=== PATIENT | female | born 1950 | race Caucasian/White ===

== ENCOUNTER 2017-11-28 10:30 | Outpatient (CLI) | payer MEDICARE, OTHER, SELFPAY | END 2017-11-28 10:31 | PROVIDERS: Visit Provider Orthopaedic Surgery | DX: M77.12 Lateral epicondylitis, left elbow (principal); M75.82 Other shoulder lesions, left shoulder | CPT/HCPCS: 99214 ==

== ENCOUNTER 2018-03-13 13:58 | Outpatient (CLI) | payer MEDICARE, OTHER, SELFPAY ==
--- NOTE | 2018-03-13 13:56 | DI.RAD_ITS ---
SYMPTOM/DIAGNOSIS: ? BILATERAL HIP PAIN AP PELVIS: Minimal acetabular spurring is seen of the hips bilaterally. The hip joints are otherwise well maintained. The sacroiliac joints and symphysis pubis appear intact. The bones are normally mineralized. The soft tissues are unremarkable. IMPRESSION: Minimal degenerative changes of the hips bilaterally.
== END 2018-03-13 14:18 ==
PROVIDERS: Visit Provider Student in an Organized Health Care Education/Training Program
DX: M25.551 Pain in right hip (principal); M25.552 Pain in left hip; M16.0 Bilateral primary osteoarthritis of hip; M77.12 Lateral epicondylitis, left elbow; M75.82 Other shoulder lesions, left shoulder; M70.52 Other bursitis of knee, left knee; M70.51 Other bursitis of knee, right knee; M54.5 Low back pain
CPT/HCPCS: 20610; 99204; 99214; 72170; J1040; L3908

== ENCOUNTER 2023-05-03 15:34 | Outpatient (CLI) | payer MEDICARE, OTHER, SELFPAY ==
--- NOTE | 2023-05-03 09:30 | DI.RAD_ITS ---
Exam(s) XR ELBOW LT COMPLETE EXAM: XR ELBOW LT COMPLETE CLINICAL HISTORY: left elbow pain. TECHNIQUE: 2D digital imaging was performed. COMPARISON: No exams were available for comparison FINDINGS: Four views. No evidence of fracture nor joint effusion. There is no swelling of the olecranon bursa. Radial hea d and neck appear unremarkable. No obvious degenerative changes nor loose intra-articular bodies in the elbow joint. Epicondyles appear unremarkable. IMPRESSION: No significant osseous findings in the elbow. DATA REPOSITORY: RADIATION DOSE DELIVERED:
== END 2023-05-03 15:35 | disposition home or self-care (01) ==
LOC: DIORS 15:34
PROVIDERS: Visit Provider Student in an Organized Health Care Education/Training Program
DX: M77.02 Medial epicondylitis, left elbow; M77.12 Lateral epicondylitis, left elbow
CPT/HCPCS: 99203; 73080

== ENCOUNTER → 2024-10-30 13:03 | Outpatient (BNVA) | payer MEDICARE, SELFPAY | PROVIDERS: Visit Provider Physical Therapy Assistant | DX: Z12.11 Encounter for screening for malignant neoplasm of colon (principal) | CPT/HCPCS: S0285 ==

== ENCOUNTER 2024-11-14 10:38 | Day surgery (SDC) | payer MEDICARE, SELFPAY ==
--- NOTE | 2024-11-13 19:06 | PDOC.DSDIS_ITS ---
Date of service: 11/14/24 Discharge Plan Disposition Patient Disposition: Home Condition: Good Discharge Details Reason For Visit: screening colonoscopy Attending Provider: Jeison Louis Primary Care Provider: Chyna,Local Home Meds and New Rx's Prescriptions: Continued hydrocodone-acetaminophen [Vicodin HP] 10-300 mg tablet 1 tab PO Q6H PRN duloxetine 60 mg capsule,delayed release(DR/EC) 60 mg PO DAILY lidocaine 5 % adhesive patch,medicated 1 patch topical DAILY Rx Instructions: leave on most painful area for up to 12 hrs methocarbamol 500 mg tablet 500 mg PO BID PRN multivitamin [Multiple Vitamins] 1 EACH tablet 1 ea PO DAILY furosemide 40 MG tablet 40 mg PO DAILY simvastatin 40 MG tablet 40 mg PO DAILY calcium carbonate 600 MG tablet 600 mg PO DAILY vitamin E (dl, acetate) 400 UNIT capsule 800 unit PO DAILY zdhtk-2y-isg-epa-fish oil-D3 [Fish Oil-Vit D3] 1 EACH capsule 1 ea PO DAILY trazodone 100 mg tablet 150 mg PO HS alendronate 10 mg tablet 10 mg PO DAILY Discontinued bisacodyl [Dulcolax (bisacodyl)] 5 mg tablet,delayed release (DR/EC) 5 mg PO ONCE Qty: 4 0RF Rx Instructions: Take per colonoscopy instructions provided by ordering providers office polyethylene glycol 3350 17 gram/dose powder 17 g PO ONCE Qty: 238 0RF Rx Instructions: Take per colonoscopy instructions provided by ordering providers office Discharge Instructions Instructions: Colon polyps, Diverticulosis Additional Instructions: Jessica, it was a pleasure meeting you today, and I hope you feel well after the procedure. Things went very smoothly. I did find, and removed, 2 polyps today. These will both be sent to the pathologist for their review. Once I know the nature of these polyps, my office will be in touch with recommendations for your next colonoscopy. Incidentally, you also have some diverticulosis. I will attach some basic information here about diverticulosis as well as colorectal po lyps. If you need anything, or have any questions at all, please do not hesitate to ask, otherwise the office will be in touch once we have the polyp report. 1. If tolerated, consume a soft, low fiber diet for 1-2 days. [address] Do not drive, drink alcohol, operate machinery, make critical decisions, or do activities that require coordination or balance for 24 hours. 3. Because air was put into your colon during the procedure, expelling air from your rectum (passing gas or farting) is normal. 4. You may not have a bowel movement for 1-3 days because of the colonoscopy prep. This is normal. 5. Go directly to the emergency room if you notice any of the following: Develop chills (warm to touch), or if you have a thermometer and your temperature is above 101 Difficulty breathing or difficultly swallowing Persistent vomiting Severe abdominal pain, other than gas cramps Severe chest pain Black, tarry stools Any bleeding ? exceeding one tablespoon 6. Call your physician if the site where your intravenous was started becomes red, swollen, painful, and warm to touch. 7. Your physician has reviewed your pre-procedure medications. Please continue to take those medications as previously ordered. You will be given specific information/education regarding any changes to your medications before leaving. Stand Alone Forms: Anesthesia Discharge InstPj Hughes (DSU) Activity:: Activity as Tolerated Diet:: As Tolerated Discharge Orders Discharge Orders: Discharge Order (Routine); Ordered 11/13/24 Ordered By: Jeison Louis DS: Diagnosis Discharge Diagnosis (1) Encounter for screening colonoscopy: Status: Acute Asessment and Plan: Follow-up on polypectomy results
--- NOTE | 2024-11-13 19:09 | COLE_ITS ---
Date of service: 11/14/24 Time of Service: 12:31 Colonoscopy Report Date of procedure: 11/14/24 Pre-op diagnosis general: screening colonoscopy Post-op diagnosis procedure note: other (Colon polyps, diverticulosis) Procedure: colonoscopy with polypectomy Surgeon: Jeison Louis Anesthesia Type: General:No Airway Estimated blood loss (mL): 5 Pathology: other (0.25 cm flat polyp at 25 cm, 0.25 cm flat polyp at 20 cm) Complications: None Disposition: same day Indications: Jessica is a 74 year old woman who needs her next screening colonoscopy Prep: Miralax/Dulcolax Procedure Start Time: 12:06 Procedure End Time: 12:24 Retraction Time: 10 Findings: Diverticulosis; 0.25 cm flat polyp at 25 cm, 0.25 cm flat polyp at 20 cm Procedure Description: After the induction of anesthesia, and with Jessica in left lateral decubitus position, I began by performing an external anorectal exam.? Perineum and skin were normal, as was the anal verge.? There was no evidence of external hemorrhoids.? Next, I performed a digital rectal exam.? I did not appreciate any abnormal findings.? Next, I advanced a colonoscope into the rectal vault.? I performed retroflexion. This appeared normal.? Using insufflation, I then advanced the colonoscope beyond the rectal folds and into the sigmoid colon before advancing towards the cecum.? There is sigmoid diverticulosis.? The scope was noted to be in the cecum by identification of the ileocecal valve and appendiceal orifice.? I then began withdrawing the colonoscope using repeated irrigation as necessary for full evaluation of the colonic mucosa. ?Around 25 cm from the anal verge was a 0.25 cm flat polyp. This was removed with cold forceps. There was minimal bleeding. Similarly, another 0.25 cm flat polyp was found around 20 cm beyond the anal verge. This was also removed with forceps wi thout any difficulty. once the scope was withdrawn to the level of the rectum, great care was taken to examine portions of the rectal folds.? Finally, the scope was withdrawn and the patient was brought to the same-day surgery recovery unit as the anesthetic wore off. ?The findings and instructions were shared with the patient prior to discharge. Trimble Bowel Prep Trimble Bowel Prep Right Colon: 3 Left Colon: 3 Transverse Colon: 3 Total Score: 9
[2024-11-14 10:52] VITALS: BP 93/56; PULSE 74; RESP 18; TEMP 36; O2SAT 95
[2024-11-14] MEDS: Lactated Ringers 1,000 ML 80 ML IV (11:17)
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
--- NOTE | 2024-11-14 12:20 | BOWEL_PTH ---
PATIENT: Jessica Newell LOC: [facility] U#:[id number] AGE/SX: 74/F ROOM: RE11/14/[address]: Jeison Louis MD : 1950 BED: DIS: 11/14/2024 SPEC #: [id number] RECD: 11/14/24 13:06 STATUS: LUIS REQ #: [id number] KIERAN: 11/14/24 12:[address]: Jeison Louis DEPT: Surgical Specimen RECD BY: Kristie Arias ENTERED: 11/14/24 13:07 SP TYPE: Bowel OTHR DR: No Local Tissues: 1 - BIOPSY BOWEL 2 - BIOPSY BOWEL Procedures: GROSS AND MICRO LEVEL 4 Comments: [id number]
[2024-11-14 12:32] VITALS: BP 92/54; PULSE 68; RESP 18; TEMP 36; O2SAT 96
--- NOTE | 2024-11-14 12:47 | W.ANESPOSTOP ---
Postoperative Evaluation Date, Time and Location Date Performed: 11/14/24 Time Performed: 12:47 Patient Location: Day Surgery Unit Vital Signs Most Recent Imported Vital Signs: Most Recent Vital Signs Temp Pulse Resp BP Pulse Ox 36.0 C L 68 18 92/54 L 96 11/14/24 12:32 11/14/24 12:32 11/14/24 12:32 11/14/24 12:32 11/14/24 12:32 Assessment Mental Status: Awake (Alert & Oriented to Patient Baseline) Airway and Respiratory Function: Patent airway with normal (patient baseline) respiratory exam Cardiovascular Function: Hemodynamically Stable Hydration Status: Adequately Hydrated Nausea & Vomiting: No Nausea or Vomiting Pain: Pt. Denies Any Pain Peripheral Nerve Block: Patient did not receive a nerve block
[2024-11-14 13:04] VITALS: BP 125/87; PULSE 68; RESP 17; TEMP 36.7; O2SAT 95
== END 2024-11-14 13:11 | disposition home or self-care (01) ==
LOC: SUR 10:40
PROVIDERS: Visit Provider Surgery
PROC: 0DJD8ZZ Inspection of Lower Intestinal Tract, Via Natural or Artificial Opening Endoscopic (ICD-10-PCS; CPT 45378; principal; 2024-11-14 12:00)
DX: Z12.11 Encounter for screening for malignant neoplasm of colon (principal); K63.5 Polyp of colon; K57.30 Diverticulosis of large intestine without perforation or abscess without bleeding
CPT/HCPCS: 45380; 88305; J2704